=== PATIENT | male | born 1965 | race Caucasian/White ===

== ENCOUNTER 2017-06-28 18:55 | Observation (INO) ==
[2017-06-28] MEDS ORDERED: Aspirin 81 MG TAB.CHEW PO ONE (19:21)
[2017-06-28] MEDS ORDERED: 0.9 % Sodium Chloride 500 ML IVC ONE (19:21)
[2017-06-28] MEDS ORDERED: Nitroglycerin 0.4 MG TAB.SUBL SL PRN (19:44)
[2017-06-28] MEDS ORDERED: Nitroglycerin 0.4 MG TAB.SUBL SL ONE (19:45)
[2017-06-28 19:46] LABS: Basophils # 0.1 K/mcL (0.0-0.2); Basophils % 0.9 %; Eosinophils # 0.2 K/mcL (0.0-0.6); Eosinophils % 2.7 %; Hematocrit 46.6 % (37.5-50.1); Hemoglobin 15.5 g/dL (12.9-16.9); Immature Granulocytes % 0.2 % (0-4); Lymphocytes # 2.7 K/mcL (0.6-4.6); Lymphocytes % 48.3 %; Mean Corpuscular HGB Conc 33.3 g/dL (31.6-35.5); Mean Corpuscular Hemoglobin 30.1 pg (28.0-33.3); Mean Corpuscular Volume 90.5 fL (83.0-100.0); Mean Platelet Volume 10.6 fL (9.4-12.4); Monocytes # 0.4 K/mcL (0.0-1.3); Monocytes % 6.4 %; Neutrophils # 2.3 K/mcL (1.6-8.9); Platelet Count 203 K/mcL (140-400); Red Blood Count 5.15 M/mcL (4.19-5.50); Red Cell Distribution Width 13.9 % (11.5-14.5); Segmented Neutrophils % 41.5 %
[2017-06-28 19:52] LABS: INR 2.7; Prothrombin Time 29.5 Seconds (9.4-12.1)
[2017-06-28 19:55] LABS: Activated Partial Thrombo Time 59.6 Seconds (26.0-36.0)
[2017-06-28 20:00] LABS: BUN/Creatinine Ratio 15 (6-26); Blood Urea Nitrogen 14 mg/dL (8-26); Calcium 9.6 mg/dL (8.6-10.8); Carbon Dioxide 27 mEq/L (19-29); Chloride 103 mEq/L (98-109); Glucose 121 mg/dL (70-99); Osmolality,Calculated 290 (280-300); Potassium 4.2 mEq/L (3.5-4.5); eGFR For African Americans > 60 (> 60); eGFR For Non-African Americans > 60 (> 60)
[2017-06-28 20:01] LABS: Sodium 139 mEq/L (136-145)
--- NOTE | 2017-06-28 20:42 | Emergency Department Note ---
Disposition Clinical Impression: Chest pain Qualifiers: Chest pain type: unspecified Qualified Code(s): R07.9 - Chest pain, unspecified Disposition: Admitted As Inpatient Condition: Good Chest Pain HPI - General Chief Complaint: ED Chest Pain Stated Complaint: CP Time Seen by Provider: 06/28/17 19:04 Source: patient, family Limitations: no limitations Vital Signs Reviewed: Yes Nursing Notes Reviewed: Yes - History of Present Illness HPI Narrative: Patient is here for evaluation of chest pain. Patient's chest pain started on Tuesday and has been progressively worse in nature. Worse with exertion and associated with radiation as well as diaphoresis. Patient has a significant heart history including previous cardiac catheter that had 60% LAD lesion. Patient was recently started on Ranexa which did improve his symptoms but he has had to cut down his dose secondary to side effects. Severity scale (1-10): 6 - Related Data Home Medications Medication Instructions Recorded Confirmed Gemfibrozil [Lopid] 600 mg PO BIDWM 07/31/15 06/28/17 OXcarbazepine [Trileptal] 150 mg PO QPM 07/31/15 06/28/17 Sertraline [Zoloft] 50 mg PO HS 07/31/15 06/28/17 HYDROcodone/Acet 10/325 mg [[place] 1 tab PO BID PRN 01/24/17 06/28/17 10-325 mg] Acetaminophen/Butalbital/Caffe 1 each PO Q4-6H PRN 06/28/17 06/28/17 [Fioricet] Aspirin Enteric Coated [Aspirin EC] 81 mg PO DAILY 06/28/17 06/28/17 Atorvastatin [Lipitor] 40 mg PO HS 06/28/17 06/28/17 Divalproex (24 HR) [Depakote ER 250 mg PO TID 06/28/17 06/28/17 (24 HR)] Magnesium Oxide [Mag-Ox] 400 mg PO BID 06/28/17 06/28/17 Metoprolol [Lopressor] 50 mg PO BID 06/28/17 06/28/17 Midodrine [ProAmatine] 5 mg PO BID 06/28/17 06/28/17 Nitroglycerin [Nitrostat] 0.4 mg SL Q5M PRN 06/28/17 06/28/17 OXcarbazepine [Oxcarbazepine] 300 mg PO QAM 06/28/17 06/28/17 Promethazine [Phenergan] 25 mg PO BID PRN 06/28/17 06/28/17 Ranolazine [Ranexa] 500 mg PO BID 06/28/17 06/28/17 Warfarin [Coumadin] 8 mg PO DAILY 06/28/17 06/28/17 Allergies Allergy/AdvReac Type Severity Reaction Status Date / Time gabapentin Allergy Rash Verified 01/24/17 08:29 adhesive tape AdvReac Rash Verified 01/24/17 08:29 ibuprofen [From Motrin] AdvReac Swelling Verified 01/24/17 08:29 of Lip/Tongue/Throat morphine AdvReac See Verified 01/24/17 08:29 Comments Review of Systems: CONSTITUTIONAL: Fatigue and weakness No weight loss, fever, chills HEENT: Eyes: No visual changes. Ears, Nose, Throat: No hearing loss, difficulty talking or unable to swallow. SKIN: No rash or itching. CARDIOVASCULAR: Chest pain described as pressure; diaphoresis RESPIRATORY: Shortness of breath with exertion GASTROINTESTINAL: No anorexia, nausea, vomiting or diarrhea. No abdominal pain or blood. GENITOURINARY: No burning on urination or hematuria. NEUROLOGICAL: No headache, dizziness, syncope, paralysis, ataxia, numbness or tingling in the extremities. No change in bowel or bladder control. MUSCULOSKELETAL: No muscle pain, back pain, joint pain or stiffness. Chest Pain PMH - Past Medical History Medical history: Reports: arthritis, atrial fibrillation, COPD, coronary artery disease, hyperlipidemia, hypertension, pulmonary embolus, other Surgical history: Reports: pacemaker/AICD Psychiatric history: Reports: depression Prior Cardiac Testing/Procedures: Cardiac Angiogram (february) - Social History Smoking Status: Former smoker Alcohol use: Reports: none Drug use: Reports: none Physical Exam General appearance: Mild diaphoresis, conversant Eyes: anicteric sclerae, moist conjunctivae; PERRL HENT: Atraumatic; oropharynx clear with moist mucous membranes and no mucosal ulcerations Neck: Normal inspection; Trachea midline; FROM, supple Lungs: CTA, with normal respiratory effort and no intercostal retractions CV: RRR, no MRGs Abdomen: Soft, non-tender; no rebound or gaurding Extremities: No peripheral edema or extremity lymphadenopathy Skin: Normal temperature; no rash, ulcers or lesions Psych: Appropriate mood and affect Neuro: alert and oriented to person, place and time - General Limitations: no limitations General appearance: alert, in no apparent distress Course - Reevaluation(s) Reevaluation #1: Patient's chest pain significantly improved with just one nitroglycerin. Nitroglycerin has given him a migraine headache which stopped him from taking the second nitroglycerin. Patient reassured that we will give him pain medication like to get him chest pain-free if possible. Vital Signs Temperature 98.0 F 06/28/17 18:58 Pulse Rate 74 06/28/17 18:58 Respiratory Rate 18 06/28/17 18:58 Blood Pressure 148/101 06/28/17 18:58 O2 Sat by Pulse Oximetry 98 06/28/17 18:58 Temperature 98.0 F 06/28/17 18:58 Pulse Rate 70 06/28/17 21:00 Respiratory Rate 16 06/28/17 22:04 Blood Pressure 117/79 06/28/17 22:04 O2 Sat by Pulse Oximetry 94 06/28/17 21:00 Oxygen Delivery Oxygen Delivery Room Air Chest Pain - Medical Records Medical records reviewed: Yes I reviewed the patient's medical records. - Lab Data Lab results reviewed: Yes I reviewed the patient's lab results. Result diagrams: 06/28/17 19:37 06/28/17 19:37 Lab Results 06/28/17 06/28/17 06/28/17 Range/Units 19:37 19:37 19:37 WBC 5.6 (4.3-11.1) K/mcL RBC 5.15 (4.19-5.50) M/mcL Hgb 15.5 (12.9-16.9) g/dL Hct 46.6 (37.5-50.1) % MCV 90.5 (83.0-100.0) fL MCH 30.1 (28.0-33.3) pg MCHC 33.3 (31.6-35.5) g/dL RDW 13.9 (11.5-14.5) % Plt Count 203 (140-400) K/mcL MPV 10.6 (9.4-12.4) fL Immature Gran % 0.2 (0-4) % Seg Neutrophils % 41.5 % Lymphocytes % 48.3 % Monocytes % 6.4 % Eosinophils % 2.7 % Basophils % 0.9 % Neutrophils # 2.3 (1.6-8.9) K/mcL Lymphocytes # 2.7 (0.6-4.6) K/mcL Monocytes # 0.4 (0.0-1.3) K/mcL Eosinophils # 0.2 (0.0-0.6) K/mcL Basophils # 0.1 (0.0-0.2) K/mcL PT 29.5 H (9.4-12.1) Seconds INR 2.7 APTT 59.6 H (26.0-36.0) Seconds Sodium (136-145) mEq/L Potassium (3.5-4.5) mEq/L Chloride (98-109) mEq/L Carbon Dioxide (19-29) mEq/L BUN (8-26) mg/dL Creatinine (0.72-1.25) mg/dL Est GFR ( Amer) (> 60) Est GFR (Non-Af Amer) (> 60) BUN/Creatinine Ratio (6-26) Glucose (70-99) mg/dL Calculated Osmolality (280-300) Calcium (8.6-10.8) mg/dL Troponin I (0-0.03) ng/mL B-Natriuretic Peptide 19 (0-100) pg/mL 06/28/17 06/28/17 Range/Units 19:37 19:37 WBC (4.3-11.1) K/mcL RBC (4.19-5.50) M/mcL Hgb (12.9-16.9) g/dL Hct (37.5-50.1) % MCV (83.0-100.0) fL MCH (28.0-33.3) pg MCHC (31.6-35.5) g/dL RDW (11.5-14.5) % Plt Count (140-400) K/mcL MPV (9.4-12.4) fL Immature Gran % (0-4) % Seg Neutrophils % % Lymphocytes % % Monocytes % % Eosinophils % % Basophils % % Neutrophils # (1.6-8.9) K/mcL Lymphocytes # (0.6-4.6) K/mcL Monocytes # (0.0-1.3) K/mcL Eosinophils # (0.0-0.6) K/mcL Basophils # (0.0-0.2) K/mcL PT (9.4-12.1) Seconds INR APTT (26.0-36.0) Seconds Sodium 139 (136-145) mEq/L Potassium 4.2 (3.5-4.5) mEq/L Chloride 103 (98-109) mEq/L Carbon Dioxide 27 (19-29) mEq/L BUN 14 (8-26) mg/dL Creatinine 0.96 (0.72-1.25) mg/dL Est GFR ( Amer) > 60 (> 60) Est GFR (Non-Af Amer) > 60 (> 60) BUN/Creatinine Ratio 15 (6-26) Glucose 121 H (70-99) mg/dL Calculated Osmolality 290 (280-300) Calcium 9.6 (8.6-10.8) mg/dL Troponin I 0.00 (0-0.03) ng/mL B-Natriuretic Peptide (0-100) pg/mL - Radiology Data Radiology results reviewed: Yes I reviewed the patient's radiology results. - EKG Data EKG attestation: Yes I reviewed and interpreted this EKG. EKG results narrative: EKG shows electronically paced rhythm at 73 bpm. OR interval 223. QRS 102. QTC 389. No significant ST elevations or depressions. When compared to previous EKG of 07/31/15 there are no significant changes. Attestation Statement - Attestation Attestation: I, Neftali Eastman MD, personally evaluated this patient and discussed their management with the resident physician. I reviewed the resident's note and agree with the documented findings, medical decision making, and plan of care. 51-year-old male presents to the emergency department with a complaint of increasing chest pains over the past 3 days. He describes the pain as a pressure in the substernal area. Some intermittent radiation to the left arm. Some diaphoresis and shortness of breath associated with the pain. The pain is worse with exertion and improved with rest. Patient has some known coronary artery disease from a fairly recent cardiac catheter. He states that he was advised if the pain continued to come back to the hospital and they would figure out something to do for his pain. On examination patient is a well-developed well-nourished male in no acute distress. He is alert and oriented 3. There is no cyanosis or diaphoresis. There is mild tenderness to palpation over the anterior chest wall which does not reproduce the patient's chest pains. Breath sounds are clear and equal bilaterally. Heart regular rate and rhythm. Abdomen soft and nontender with normal bowel sounds. Labs reviewed. Troponin 0.00. Chest x-ray negative. EKG shows an atrial pacemaker with no acute ischemic changes. The hospital, Dr. Maher, was consulted and accepted admission of the patient.
[2017-06-28] MEDS ORDERED: Naloxone 0.4 MG/ML INJ IVP PRN (22:43)
[2017-06-28] MEDS ORDERED: Acetaminophen 325 MG TABLET PO PRN (22:44)
[2017-06-28] MEDS ORDERED: *HR* HYDROcodone/Acet 10/325 mg TABLET PO PRN (22:47)
--- NOTE | 2017-06-29 01:07 | Internal Med History&Physical ---
Date of Encounter: 06/29/17 Time of Encounter: 22:00 Assessment and Plan (1) Paroxysmal a-fib Current visit: Yes Status: Acute Right now pacing rhythm. Heart rate is well controlled. Patient is on Coumadin. INR is therapeutic. (2) Tachy-freddy syndrome Current visit: Yes Status: Acute s/p pacemaker placement. Heart rate is stable. (3) CAD (coronary artery disease) Current visit: Yes Status: Acute has more frequent chest pain. Chest pain is exertional. We will continue ASA, BB, Statin, Renexa. Cardiology consult for further management. Qualifiers: Coronary Disease-Associated Artery/Lesion type: [place] artery [place] vs. transplanted heart: [place] heart Associated angina: with stable angina Qualified Code(s): I25.118 - Atherosclerotic heart disease of [place] coronary artery with other forms of angina pectoris (4) DVT prophylaxis Current visit: Yes Status: Acute Patient is on Coumadin (5) Chest pain Current visit: Yes Status: Acute more like stable angina. Will place patient on continuous cardiac monitoring. track 3 sets of troponin to rule out ACS. Continue medical treatment. Place on echocardiogram. Patient had a recent LHC already and CAD is diagnosed. We will consult cardiology for further management. Qualifiers: Chest pain type: chest pain due to myocardial ischemia Qualified Code(s): I20.8 - Other forms of angina pectoris Internal Medicine - H&P: HPI Chief complaint: Chest pain Admitted From: Home Plans for Post Hospital Care: Home History of present illness: Mr. Padilla is a 51 year old male with a history of paroxysmal A. fib on Coumadin, tachybradycardia syndrome s/p pacemaker, CAD present to emergency room for chest tightness and the pain. Patient has chronic chest pain, especially exertional angina. He did LHC in January and was found 60% proximal LAD stenosis. He follow up with bacon de rinder Dr Andrews as outpatient. Patient said since Tuesday he had 2 episodes of chest pain, pain is a pressure-like, 10 out of 10, located on left chest and radiated to left arm, lasted 30 min-1 hour, with shortness of breath and nausea and diaphoresis. Pain is induced by exertion. Respond to nitroglycerin. Patient consulted his bacon de rinder and recommended to come to ER. Patient was admitted for further management. When I saw patient in the emergency room, he is pain-free but still complaining of chest tightness. Have discussed CODE STATUS with patient. He is full code. Past Med Surg Social Fam HX - Past Medical History Medical history: arthritis, atrial fibrillation, COPD, coronary artery disease, hyperlipidemia, hypertension, pulmonary embolus, other Psychiatric history: depression - Past Surgical History Surgical History: orthopedic, other, pacemaker/AICD - Social History Smoking Status: Former smoker Smokeless Tobacco Status: No Alcohol use: none Drug use: none - Family History Mother Living Status: Hx Family Cardiac Disorders: Yes (HTN) Hx Family Cancer: Yes (bowel) Hx Family Endocrine Disorder: Yes (DM) Father Hx Family Cardiac Disorders: Yes Hx Family Cancer: Yes Internal Medicine - H&P: Meds Gemfibrozil [Lopid] 600 mg PO BIDWM 07/31/15 [History] OXcarbazepine [Trileptal] 150 mg PO QPM 07/31/15 [History] Sertraline [Zoloft] 50 mg PO HS 07/31/15 [History] HYDROcodone/Acet 10/325 mg [[place] 10-325 mg] 1 tab PO BID PRN 01/24/17 [History] Acetaminophen/Butalbital/Caffe [Fioricet] 1 each PO Q4-6H PRN 06/28/17 [History] Aspirin Enteric Coated [Aspirin EC] 81 mg PO DAILY 06/28/17 [History] Atorvastatin [Lipitor] 40 mg PO HS 06/28/17 [History] Divalproex (24 HR) [Depakote ER (24 HR)] 250 mg PO TID 06/28/17 [History] Magnesium Oxide [Mag-Ox] 400 mg PO BID 06/28/17 [History] Metoprolol [Lopressor] 50 mg PO BID 06/28/17 [History] Midodrine [ProAmatine] 5 mg PO BID 06/28/17 [History] Nitroglycerin [Nitrostat] 0.4 mg SL Q5M PRN 06/28/17 [History] OXcarbazepine [Oxcarbazepine] 300 mg PO QAM 06/28/17 [History] Promethazine [Phenergan] 25 mg PO BID PRN 06/28/17 [History] Ranolazine [Ranexa] 500 mg PO BID 06/28/17 [History] Warfarin [Coumadin] 8 mg PO DAILY 06/28/17 [History] Allergies gabapentin Allergy (Verified 01/24/17 08:29) Rash adhesive tape Adverse Reaction (Verified 01/24/17 08:29) Rash ibuprofen [From Motrin] Adverse Reaction (Verified 01/24/17 08:29) Swelling of Lip/Tongue/Throat morphine Adverse Reaction (Verified 01/24/17 08:29) See Comments Pt states that he goes into organ shutdown. All Systems PM: A 10-system review of systems was performed and is negative for pertinent findings except as documented above in the HPI. - Constitutional Vitals: Temp Pulse Resp BP Pulse Ox 97.8 F 68 18 134/92 95 06/28/17 22:38 06/28/17 22:38 06/28/17 22:38 06/28/17 22:38 06/28/17 22:38 General appearance: Present: A&O X 3, no acute distress, answers questions appropriately - Head Head exam: Present: atraumatic, normocephalic - Eye Eye exam: Present: PERRL, conjuntiva pink, sclera anicteric Pupils: Present: PERRL - Neck Neck exam general surgery: Present: supple, trachea midline. Absent: lymphadenopathy - Respiratory Respiratory exam: Present: CTAB. Absent: accessory muscle use, rales, rhonchi, wheezes - Cardiovascular Cardiovascular exam: Present: RRR, +S1, +S2. Absent: diastolic murmur, gallop, rubs, systolic murmur - GI/Abdominal GI/Abdominal exam: Present: normal bowel sounds, soft, no peritoneal signs. Absent: distended, tenderness - Extremities Exam Extremities exam: Present: warm, radial pulses palpable and symmetrical. Absent : calf tenderness, cyanotic, pedal edema - Neurological Exam Neurological exam: Present: CN II-XII intact, oriented X3, no focal deficits. Absent: pronater drift, facial droop, speech deficit - Skin Skin exam: Present: dry, intact Internal Med - H&P Results - Labs CBC & Chem 7: 06/28/17 19:37 06/28/17 19:37 - EKG Data -: EKG Interpreted by Myself (Pacing rhythm w/o significant ST-T changes.)
[2017-06-29 01:34] LABS: Basophils # 0.1 K/mcL (0.0-0.2); Basophils % 0.8 %; Eosinophils # 0.2 K/mcL (0.0-0.6); Eosinophils % 3.3 %; Hematocrit 43.2 % (37.5-50.1); Hemoglobin 14.7 g/dL (12.9-16.9); Immature Granulocytes % 0.2 % (0-4); Lymphocytes # 3.2 K/mcL (0.6-4.6); Lymphocytes % 52.6 %; Mean Corpuscular Hemoglobin 30.2 pg (28.0-33.3); Mean Corpuscular Volume 88.9 fL (83.0-100.0); Mean Platelet Volume 10.7 fL (9.4-12.4); Monocytes # 0.6 K/mcL (0.0-1.3); Monocytes % 9.8 %; Neutrophils # 2.1 K/mcL (1.6-8.9); Platelet Count 191 K/mcL (140-400); Red Blood Count 4.86 M/mcL (4.19-5.50); Segmented Neutrophils % 33.3 %
[2017-06-29 01:38] LABS: INR 2.8; Prothrombin Time 31.4 Seconds (9.4-12.1)
[2017-06-29 01:49] LABS: BUN/Creatinine Ratio 18 (6-26); Blood Urea Nitrogen 14 mg/dL (8-26); Calcium 9.3 mg/dL (8.6-10.8); Carbon Dioxide 26 mEq/L (19-29); Chloride 106 mEq/L (98-109); Chol/HDL Ratio 5.7 (0-4.9); Cholesterol 194 mg/dL (< 200); Glucose 98 mg/dL (70-99); HDL Cholesterol 34 mg/dL (40-59); LDL Cholesterol,Calculated 121 mg/dL (0-99); Magnesium 1.9 mg/dL (1.6-2.6); Osmolality,Calculated 288 (280-300); Potassium 3.9 mEq/L (3.5-4.5); Sodium 139 mEq/L (136-145); Triglycerides 196 mg/dL (< 150); eGFR For African Americans > 60 (> 60); eGFR For Non-African Americans > 60 (> 60)
--- NOTE | 2017-06-29 11:28 | Cardiology Consult Note ---
<VandanaNam - Last Filed: 06/29/17 11:17> Date of Encounter: 06/29/17 Time of Encounter: 10:00 Assessment and Plan Discussion w patient/family: The assessment and plan as outlined above was discussed with the patient and/or family members who expressed understanding and agreement. All questions were answered. Thank you for involving us in the care of your patient. Please call with any questions. History of Present Illness Consult date: 06/29/17 Requesting physician: Dickson Maher Consult reason: Exertional chest pain, C in January showing 60% stenosis. Chief complaint: Chest pain and shortness of breath. History of present illness: Mr. Padilla is a 51 year old male with a PMH of A-Fib, tach-bradycardia syndrome s/ p pacemaker, and CAD that presented to the ED yesterday for chest pain and shortness of breath. Patient said shis symptoms initially began last Tuesday. Upon waking up, he describes a pressure on his chest with radiation to his L arm. He rated the paina 4-5/10. He also began to experience shortness of breath. It lasted for 4 hours until he took some nitroglycerin tabs and eased the pain to a 1-2/10. A few hours later the pain came back again while he was walking in his house. Taking some nitro tabs helped him again. 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 He took some nitro tabs which helped with the pain. Later in the day, he proceeded to walk up his inclined driveway when he felt a chest pain of 10/10 along with shortness of breath. When he took some nitro tabs, the pain eased a bit. By the time he got to the ER, his pain came back again to a 10/10. He responded to nitro in the ER. Troponins were negative on arrival. Chest X-ray revealed no acute cardiopulmonary disease. Speaking to him today, he still complains of chest tightness/pressure, rating it a 3/10 in pain scale. He denies shortness of breath when resting but admits to it when he sits up or moves around. Past Med Surg Social Fam HX - Past Medical History Medical history: arthritis, atrial fibrillation, COPD, coronary artery disease, hyperlipidemia, hypertension, pulmonary embolus, other Psychiatric history: depression - Past Surgical History Surgical History: orthopedic, other, pacemaker/AICD - Social History Smoking Status: Former smoker Smokeless Tobacco Status: No Alcohol use: none Drug use: none - Family History Mother Living Status: Hx Family Cardiac Disorders: Yes (HTN) Hx Family Cancer: Yes (bowel) Hx Family Endocrine Disorder: Yes (DM) Father Hx Family Cardiac Disorders: Yes Hx Family Cancer: Yes Medications and Allergies Gemfibrozil [Lopid] 600 mg PO BIDWM 07/31/15 [History] OXcarbazepine [Trileptal] 150 mg PO QPM 07/31/15 [History] Sertraline [Zoloft] 50 mg PO HS 07/31/15 [History] HYDROcodone/Acet 10/325 mg [[place] 10-325 mg] 1 tab PO BID PRN 01/24/17 [History] Acetaminophen/Butalbital/Caffe [Fioricet] 1 each PO Q4-6H PRN 06/28/17 [History] Aspirin Enteric Coated [Aspirin EC] 81 mg PO DAILY 06/28/17 [History] Atorvastatin [Lipitor] 40 mg PO HS 06/28/17 [History] Divalproex (24 HR) [Depakote ER (24 HR)] 250 mg PO TID 06/28/17 [History] Magnesium Oxide [Mag-Ox] 400 mg PO BID 06/28/17 [History] Metoprolol [Lopressor] 50 mg PO BID 06/28/17 [History] Midodrine [ProAmatine] 5 mg PO BID 06/28/17 [History] Nitroglycerin [Nitrostat] 0.4 mg SL Q5M PRN 06/28/17 [History] OXcarbazepine [Oxcarbazepine] 300 mg PO QAM 06/28/17 [History] Promethazine [Phenergan] 25 mg PO BID PRN 06/28/17 [History] Ranolazine [Ranexa] 500 mg PO BID 06/28/17 [History] Warfarin [Coumadin] 8 mg PO DAILY 06/28/17 [History] Allergies gabapentin Allergy (Verified 01/24/17 08:29) Rash adhesive tape Adverse Reaction (Verified 01/24/17 08:29) Rash ibuprofen [From Motrin] Adverse Reaction (Verified 01/24/17 08:29) Swelling of Lip/Tongue/Throat morphine Adverse Reaction (Verified 01/24/17 08:29) See Comments Pt states that he goes into organ shutdown. All Systems Review: A 10-system review of systems was performed and is negative for pertinent findings except as documented above in the HPI. Physical Examination Vital Signs, Last 4 Hours Temp Pulse Resp BP Pulse Ox 06/29/17 07:26 97.5 F L 65 16 125/87 95 Results 06/29/17 01:08 06/29/17 01:08 Lab Results 06/29/17 06/29/17 06/29/17 01:08 01:08 01:08 WBC 6.1 Hgb 14.7 Hct 43.2 Plt Count 191 INR 2.8 Sodium Potassium Chloride Carbon Dioxide BUN Creatinine Glucose Calcium Magnesium Troponin I 0.00 06/29/17 06/29/17 01:08 05:39 WBC Hgb Hct Plt Count INR Sodium 139 Potassium 3.9 Chloride 106 Carbon Dioxide 26 BUN 14 Creatinine 0.77 Glucose 98 Calcium 9.3 Magnesium 1.9 Troponin I 0.00 Consult Discharge Plan - Plan Referrals: Juan Saucedo MD [Primary Care Provider] - <Vipul Hernandez J - Last Filed: 06/29/17 14:01> Date of Encounter: 06/29/17 Assessment and Plan (1) Chest pain Current Visit: Yes Status: Acute 1. Atypical chest pain, improved but not completely resolved, troponins negative , will order chest CT to rule out PE. 2. Sick sinus syndrome with PPMK, last interogated 8 onths ago, will repeat sutdy today, syimptoms may be due to pacemaker syndrome 3. PE - by history, pt reports todays complaints similar to previouss presentation with DVT/PE, will obtain spiral ct to rule out PE, expect low probability with therapuetic INR. 4. Chronic migraines, improved control with recent increase from 25 to 50 mg metoprolol tartrate to 50 mg bid. 5. CAD - trivial stenosis in Mid LAD< 60% with excellent flow reserve of .98 before and after pharmacologic challenge with Adenosine. j Qualifiers: Chest pain type: other chest pain Qualified Code(s): R07.89 - Other chest pain; R07.8 - Other chest pain Discussion w patient/family: The assessment and plan as outlined above was discussed with the patient and/or family members who expressed understanding and agreement. All questions were answered. Thank you for involving us in the care of your patient. Please call with any questions. History of Present Illness History of present illness: Mr. Padilla is a 51 year old male who presented to the ER with three day history of chest pain, sudden onset, 8/10 at most severe, stabbing sensation, beginning in left chest, radiating into left shoulder and left arm, lasting seconds up to five minutes, associated with heart pounding, improved with rest, and with sublingual ntg over five minutes.. Pain can occur at rest, and can be provoked by exercise. He reports chest pain improves with sl ntg, but has not completely resolved, still having 2/10 pain at rest. He notes recurrent symptoms, reports has been in ER x 6 to 9 times over the last three months with similar complaints. He reports sequential EKGs and cardiac enzemes are consistently normal, is observed in ER for several hours, then discharged to home care. He has undergone multiple perfusion imaging studies, all reportedly normal. He notes his heart racing and pounding associated with the events of chest pain. He is followed in a research study for pacer lead endurance at [facility] with Dr. Zeke Martínez, who manages his pacemaker. PT All Systems Review: A 10-system review of systems was performed and is negative for pertinent findings except as documented above in the HPI. - Constitutional Constitutional: fatigue, headache(s), malaise - Cardiovascular Cardiovascular: chest pain at rest, chest pain with exertion, diaphoresis, dyspnea on exertion, irregular heart rhythm, lightheadedness, palpitations, rapid heart rate - Respiratory Respiratory: dyspnea - Musculoskeletal Musculoskeletal: arthralgias, back pain, muscle weakness - Neurological Neurological: abnormal speech, memory loss, syncope, other (Pt is on midodrine for near syncope with some symptomatic improvement. ) - Psychiatric Psychiatric: anxiety, depression Physical Examination Vital Signs, Last 4 Hours Temp Pulse Resp BP Pulse Ox 06/29/17 11:38 97.9 F 69 16 142/103 96 General: Conversant, No Apparent Distress, Other (Complains of 4/10 migraine pain, however normally conversant, not demostrating photophopbia) HEENT: Atraumatic, Normocephaly, Mucus Membranes Moist Neck: No JVD, Normal carotid pulses Cardiac: Reg Rate and Rhythm, Normal S1 and S2, No Murmur Lungs: Normal Breath Sounds, No Wheeze, Rales, Rhonchi Neuro: Alert and responsive, No focal deficits noted Abdomen: Soft, Non-Tender Skin: No rashes noted on visualized skin Musculoskeletal: No Chest Wall Tenderness Extremities: No Clubbing, No Cyanosis, No Edema, Normal Pulses Results 06/29/17 01:08 06/29/17 01:08 Lab Results 06/29/17 06/29/17 06/29/17 01:08 01:08 01:08 WBC 6.1 Hgb 14.7 Hct 43.2 Plt Count 191 INR 2.8 Sodium Potassium Chloride Carbon Dioxide BUN Creatinine Glucose Calcium Magnesium Troponin I 0.00 06/29/17 06/29/17 01:08 05:39 WBC Hgb Hct Plt Count INR Sodium 139 Potassium 3.9 Chloride 106 Carbon Dioxide 26 BUN 14 Creatinine 0.77 Glucose 98 Calcium 9.3 Magnesium 1.9 Troponin I 0.00 - Attending Attestation Pt seen and examined independently, chart reviewed, essentially agree with above findings, see my addendum attached.
[2017-06-29] MEDS: Acetaminophen/Butalbital/CaffeineTABLET PO PRN (14:35)
[2017-06-29] MEDS: Divalproex (24 HR) 250 MG TABLET PO SCH ×3 (14:36→20:19)
--- NOTE | 2017-06-29 15:16 | Electrocardiograph Report ---
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
--- NOTE | 2017-06-29 17:10 | Internal Med Progress Note ---
Date of Encounter: 06/29/17 Time of Encounter: 14:45 - Assessment and plan (1) Chest pain Current Visit: Yes Status: Acute Assessment and plan: Patient reports 3/10 midsternal and left chest pressure with shortness of breath. He denies any nausea vomiting or diaphoresis. It has improved but has not completely resolved. Troponins are negative. CT chest was negative for PE or acute process. Chest x-ray was also negative for any acute cardiopulmonary disease. EKG showed atrial paced rhythm with a rate of 73, ME interval 223 RS 102 QTC 389. Patient was seen by cardiology who ordered the CTA chest. Patient has a pacemaker that was last interrogated 8 months ago. He is to see his hotel custodian for interrogation next week. Cardiology here reports that they will interrogate the pacemaker instead. Continue school lunch monitor vital signs, labs, patient condition. Cardiology on board. Qualifiers: Chest pain type: other chest pain Qualified Code(s): R07.89 - Other chest pain; R07.8 - Other chest pain (2) Paroxysmal a-fib Current Visit: Yes Status: Acute Assessment and plan: Patient has pacemaker, rhythm is paced. Rate is well controlled. He is on Coumadin 8 mg daily. INR is therapeutic at 2.8.. 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 Patient has a pacemaker. Heart rate is stable and within normal limits. (4) CAD (coronary artery disease) Current Visit: Yes Status: Acute Assessment and plan: Patient reports 3/10 midsternal and left chest pressure with shortness of breath. It has improved, however has not resolved. Continue aspirin, statin, beta eleni, Ranexa. Cardiology is on board. Continue telemetry Qualifiers: Coronary Disease-Associated Artery/Lesion type: [place] artery [place] vs. transplanted heart: [place] heart Associated angina: with stable angina Qualified Code(s): I25.118 - Atherosclerotic heart disease of [place] coronary artery with other forms of angina pectoris (5) DVT prophylaxis Current Visit: Yes Status: Acute Assessment and plan: Patient is on Coumadin. - Time Spent With Patient less than 15 minutes - Subjective Interval history: Pt was seen and assessed at 1445. He is alert and oriented, awake. He reports 3/ 10 mid sternal and left chest pressure for 4 days. He reports SOB which is new for him, denies n/v of diaphoresis. Pt states that the pressure is worse with minimal exertion, pain is better with nitro and rest. Pt is aware that CT and echo results will not be done tonight and he will have to stay. - Constitutional Vitals: Temp Pulse Resp BP Pulse Ox 97.9 F 69 16 142/103 96 06/29/17 11:38 06/29/17 11:38 06/29/17 11:38 06/29/17 11:38 06/29/17 11:38 General appearance: Present: cooperative, A&O X 3, pleasant, no acute distress, answers questions appropriately - Head Head exam: Present: normal inspection - Eye Eye exam: Present: normal appearance, conjuntiva pink - ENT ENT exam: Present: mucous membranes moist, normal exam, normal external ear exam - Neck Neck exam general surgery: Present: normal inspection. Absent: lymphadenopathy , tenderness - Respiratory Respiratory exam: Present: CTAB. Absent: decreased breath sounds, rales, respiratory distress, rhonchi, stridor, wheezes - Cardiovascular Cardiovascular exam: Present: RRR, +S1, +S2. Absent: clicks, diastolic murmur, gallop, systolic murmur - GI/Abdominal GI/Abdominal exam: Present: normal bowel sounds, soft. Absent: distended, hepatomegaly, pulsatile mass, tenderness - Extremities Exam Extremities exam: Present: normal capillary refill, warm, radial pulses palpable and symmetrical. Absent: pedal edema, tenderness - Neurological Exam Neurological exam: Present: alert, oriented X3, no focal deficits. Absent: facial droop, speech deficit - Skin Skin exam: Present: dry, intact, normal color, warm. Absent: rash, urticaria Internal Medicine: Result - Labs CBC & Chem 7: 06/29/17 01:08 06/29/17 01:08 Labs: Short CBC 06/29/17 Range/Units 01:08 WBC 6.1 (4.3-11.1) K/mcL Hgb 14.7 (12.9-16.9) g/dL Hct 43.2 (37.5-50.1) % Plt Count 191 (140-400) K/mcL Neutrophils # 2.1 (1.6-8.9) K/mcL BMP 06/29/17 01:08 Sodium 139 Potassium 3.9 Chloride 106 Carbon Dioxide 26 BUN 14 Creatinine 0.77 Glucose 98 Calcium 9.3 Cardiac Enzymes 06/29/17 06/29/17 Range/Units 01:08 05:39 Troponin I 0.00 0.00 (0-0.03) ng/mL - ABG Interpretation ABG results: PT/INR, D-dimer PT 31.4 Seconds (9.4-12.1) H 06/29/17 01:08 - Impressions Impressions Chest CTA 06/29/17 14:05 IMPRESSION: No evidence of pulmonary embolism or acute pulmonary abnormality. D/ /29/2017 15:33:32 Kadie Hernandez MD / bcarter Interpreting Provider: Kadie Hernandez MD Consult Discharge Plan - Plan Referrals: Juan Saucedo MD [Primary Care Provider] -
[2017-06-29] MEDS: Aspirin Enteric Coated 81 MG Tablet PO SCH (17:23)
[2017-06-29] MEDS: Magnesium Oxide 400 MG TABLET PO SCH ×2 (17:23→20:19)
[2017-06-29] MEDS: Ranolazine 500 MG TAB.ER.12H PO SCH ×2 (17:24→20:19)
[2017-06-29] MEDS: OXcarbazepine 150 MG TABLET PO SCH ×2 (17:27→17:34)
[2017-06-29] MEDS ORDERED: *HR* Warfarin 4 MG TABLET PO SCH (18:00)
[2017-06-29] MEDS ORDERED: *HR* Warfarin 7.5 MG TABLET PO ONE (18:00)
[2017-06-29] MEDS ORDERED: Warfarin perPT PO PRN (18:00)
[2017-06-30 05:28] LABS: Basophils # 0.1 K/mcL (0.0-0.2); Basophils % 0.7 %; Eosinophils # 0.2 K/mcL (0.0-0.6); Eosinophils % 2.8 %; Hematocrit 45.4 % (37.5-50.1); Hemoglobin 15.5 g/dL (12.9-16.9); INR 1.9; Immature Granulocytes % 0.6 % (0-4); Immature Platelets 4.9 % (1.1-6.1); Lymphocytes # 2.5 K/mcL (0.6-4.6); Lymphocytes % 35.7 %; Mean Corpuscular HGB Conc 34.1 g/dL (31.6-35.5); Mean Corpuscular Volume 90.8 fL (83.0-100.0); Mean Platelet Volume 10.7 fL (9.4-12.4); Monocytes # 0.6 K/mcL (0.0-1.3); Monocytes % 9.1 %; Neutrophils # 3.6 K/mcL (1.6-8.9); Platelet Count 202 K/mcL (140-400); Prothrombin Time 20.5 Seconds (9.4-12.1); Red Cell Distribution Width 14.3 % (11.5-14.5); Segmented Neutrophils % 51.1 %
[2017-06-30 05:42] LABS: BUN/Creatinine Ratio 22 (6-26); Blood Urea Nitrogen 16 mg/dL (8-26); Calcium 9.2 mg/dL (8.6-10.8); Carbon Dioxide 24 mEq/L (19-29); Chloride 108 mEq/L (98-109); Glucose 107 mg/dL (70-99); Osmolality,Calculated 288 (280-300); Potassium 3.9 mEq/L (3.5-4.5); Sodium 138 mEq/L (136-145); eGFR For African Americans > 60 (> 60); eGFR For Non-African Americans > 60 (> 60)
[2017-06-30] MEDS: OXcarbazepine 150 MG TABLET PO SCH ×2 (09:00→17:25)
[2017-06-30] MEDS: Aspirin Enteric Coated 81 MG Tablet PO SCH (09:00)
[2017-06-30] MEDS: Magnesium Oxide 400 MG TABLET PO SCH ×2 (09:00→21:53)
[2017-06-30] MEDS: Ranolazine 500 MG TAB.ER.12H PO SCH ×2 (09:00→21:53)
[2017-06-30] MEDS: Divalproex (24 HR) 250 MG TABLET PO SCH ×3 (09:01→21:53)
--- NOTE | 2017-06-30 11:55 | Internal Med Progress Note ---
Date of Encounter: 06/30/17 Time of Encounter: 10:55 - Assessment and plan (1) Chest pain Current Visit: Yes Status: Acute Assessment and plan: Patient reports 3/10 midsternal and left chest pressure with shortness of breath after shower. He denies any nausea vomiting or diaphoresis. Troponins are negative. CT chest was negative for PE or acute process. Chest x-ray was also negative for any acute cardiopulmonary disease. EKG showed atrial paced rhythm with a rate of 73, [place] interval 223 RS 102 QTC 389. verbalizes concern over pt's ability to go home due to chest pain and SOB with exertion We are waiting on cardiology to see pt, I appreciate their consultation and recommendations. Continue panel monitor vital signs, labs, patient condition. Cardiology on board. Qualifiers: Chest pain type: other chest pain Qualified Code(s): R07.89 - Other chest pain; R07.8 - Other chest pain (2) Paroxysmal a-fib Current Visit: Yes Status: Acute Assessment and plan: Patient has pacemaker, rhythm is paced. Rate is well controlled. He is on Coumadin 8 mg daily. INR is subtherapeutic at 1.9. Pharmacy is dosing. 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 Patient has a pacemaker. Heart rate is stable and within normal limits. (4) CAD (coronary artery disease) Current Visit: Yes Status: Acute Assessment and plan: Patient reports 3/10 midsternal and left chest pressure with shortness of breath again today after shower. It has improved with rest over time, however has not resolved. Continue aspirin, statin, beta eleni, Ranexa. Cardiology is on board. Continue telemetry Qualifiers: Coronary Disease-Associated Artery/Lesion type: [place] artery [place] vs. transplanted heart: [place] heart Associated angina: with stable angina Qualified Code(s): I25.118 - Atherosclerotic heart disease of [place] coronary artery with other forms of angina pectoris (5) DVT prophylaxis Current Visit: Yes Status: Acute Assessment and plan: Patient is on Coumadin. - Time Spent With Patient less than 15 minutes - Subjective Interval history: Pt was seen and assessed at 1055. and multiple family at bedside. Pt states that he was feeling well until he got up to take a shower and became sob and began having chest pressure again. It was not relieved with rest, but has decreased to about a 2-3/10 over time. Pt does not appear to be in distress and speaks easily in full sentences. His is concerned about him going home in his current condition since they live so far away and he may become worse. - Constitutional Vitals: Temp Pulse Resp BP Pulse Ox 97.5 F L 62 14 119/81 95 06/30/17 11:24 06/30/17 11:24 06/30/17 11:24 06/30/17 11:24 06/30/17 11:24 General appearance: Present: cooperative, A&O X 3, pleasant, no acute distress, answers questions appropriately - Head Head exam: Present: normal inspection, normocephalic - Eye Eye exam: Present: normal appearance, conjuntiva pink. Absent: nystagmus - ENT ENT exam: Present: mucous membranes moist, normal exam, normal external ear exam - Neck Neck exam general surgery: Present: normal inspection. Absent: lymphadenopathy , tenderness - Respiratory Respiratory exam: Present: CTAB. Absent: chest wall tenderness, decreased breath sounds, rales, respiratory distress, rhonchi, stridor, wheezes - Cardiovascular Cardiovascular exam: Present: RRR, +S1, +S2. Absent: clicks, diastolic murmur, gallop, systolic murmur, tachycardia - GI/Abdominal GI/Abdominal exam: Present: normal bowel sounds, soft. Absent: distended, hepatomegaly, tenderness - Extremities Exam Extremities exam: Present: normal capillary refill, normal inspection, warm, radial pulses palpable and symmetrical. Absent: calf tenderness, joint swelling , mottling, pedal edema, tenderness - Neurological Exam Neurological exam: Present: alert, oriented X3, no focal deficits, strengths equal and symetr throughout. Absent: altered, facial droop, speech deficit - Skin Skin exam: Present: dry, intact, normal color, warm. Absent: rash, urticaria Internal Medicine: Result - Labs CBC & Chem 7: 06/30/17 05:05 06/30/17 05:05 Labs: Short CBC 06/30/17 Range/Units 05:05 WBC 7.1 (4.3-11.1) K/mcL Hgb 15.5 (12.9-16.9) g/dL Hct 45.4 (37.5-50.1) % Plt Count 202 (140-400) K/mcL Neutrophils # 3.6 (1.6-8.9) K/mcL BMP 06/30/17 05:05 Sodium 138 Potassium 3.9 Chloride 108 Carbon Dioxide 24 BUN 16 Creatinine 0.74 Glucose 107 H Calcium 9.2 - ABG Interpretation ABG results: PT/INR, D-dimer PT 20.5 Seconds (9.4-12.1) H 06/30/17 05:05 - Impressions Impressions Chest CTA 06/29/17 14:05 IMPRESSION: No evidence of pulmonary embolism or acute pulmonary abnormality. D/ : / 06/29/2017 15:33:32 Kadie Hernandez MD / bcarter Interpreting Provider: Kadie Hernandez MD Consult Discharge Plan - Plan Referrals: Juan Saucedo MD [Primary Care Provider] -
--- NOTE | 2017-06-30 12:49 | Cardiology Progress Note ---
<CandacebettinajamalNam castro - Last Filed: 06/30/17 13:39> Date of Encounter: 06/30/17 Time of Encounter: 10:30 Assessment and Plan (1) Atypical chest pain Current Visit: Yes Status: Acute Chest CTA reveals no evidence of PE or acute pulmonary abnormality. Pacemaker was assessed and reported to be normal with 7.9 years left, 4 atrial high rates since May, atrial flutter/A-Fib, atrial pace of 60% and ventricular pace of 1% . Continue Nitroglycerine as needed. Continue Ranexa. (2) Sick sinus syndrome Current Visit: Yes Status: Acute Pacemaker was assessed and appeared to be functioning normally. (3) Diastolic CHF Current Visit: Yes Status: Acute Echocardiogram report from 06/29/17 reveals a LVEF of 60% with mild diastolic dysfunction of the LV. Discontinued metoprolol and replaced with sotalol 80 mg BID. Continue statin and aspirin. Qualifiers: Qualified Code(s): I50.30 - Unspecified diastolic (congestive) heart failure (4) Paroxysmal a-fib Current Visit: Yes Status: Acute Discontinued metoprolol and placed patient on sotalol 80 mg PO BID. Pacemaker was assessed and appears to be functioning normally. Patient is on coumadin and current INR is 1.9. Recommend adjusting coumadin dose from 8 mg to 10 mg. Monitor INR for therapeutic range of 2-3. (5) CAD (coronary artery disease) Current Visit: Yes Status: Acute Trivial stenosis in mid LAD < 60% with excellent flow reserve of .98 before and after pharmacologic challenge with adenosine. No cardiac stress test is recommended. Metoprolol was discontinued and replaced with sotalol. Continue aspirin and statin. Qualifiers: Coronary Disease-Associated Artery/Lesion type: [place] artery [place] vs. transplanted heart: eagle heart Associated angina: with stable angina Qualified Code(s): I25.118 - Atherosclerotic heart disease of [place] coronary artery with other forms of angina pectoris (6) Hyperlipidemia Current Visit: Yes Status: Acute Continue Statin. Qualifiers: Qualified Code(s): E78.5 - Hyperlipidemia, unspecified Discussion w patient/family: The assessment and plan as outlined above was discussed with the patient and/or family members who expressed understanding and agreement. All questions were answered. Thank you for involving us in the care of your patient. Please call with any questions. Subjective Principal diagnosis: Atypical chest pain r/o PE, Paroxysmal A-Fib Interval history: Spoke to patient today and he rates his chest pain about a 1-2/10, says it is constant, and has slightly improved since yesterday. He does admit that when he got up to go to the shower this morning, his chest pain increased to a 3-4/10 and developed shortness of breath along with some palpitations, nausea, and light headedness. He denies any vomiting or syncope. He also mentions that he sees black spots every now and then, but that is his baseline. Objective Vital Signs, Last 4 Hours Temp Pulse Resp BP Pulse Ox 06/30/17 11:24 97.5 F L 62 14 119/81 95 06/30/17 08:55 95 General: Conversant, No Apparent Distress Neck: No JVD, Normal carotid pulses Cardiac: Reg Rate and Rhythm, Normal S1 and S2, No Murmur Lungs: Normal Breath Sounds, No Wheeze, Rales, Rhonchi Neuro: Alert and responsive Musculoskeletal: No Chest Wall Tenderness Extremities: No Clubbing, No Cyanosis, No Edema, Normal Pulses Results 06/30/17 05:05 06/30/17 05:05 Lab Results 06/30/17 06/30/17 06/30/17 05:05 05:05 05:05 WBC 7.1 Hgb 15.5 Hct 45.4 Plt Count 202 INR 1.9 Sodium 138 Potassium 3.9 Chloride 108 Carbon Dioxide 24 BUN 16 Creatinine 0.74 Glucose 107 H Calcium 9.2 - Imaging and Cardiology Echo: report reviewed (06/29/17: LVEF of 60%. Normal LV size and systolic function. Mild diastolic dysfunction of LV. RV is dilated with normal function. Mild mitral regurtitation. Mild tricuspid regurgitation. No pulmonary hypertension.) Other Results: Chest CTA: No evidence of PE or acute pulmonary abnormality. Consult Discharge Plan - Plan Referrals: Juan Saucedo MD [Primary Care Provider] - 07/07/17 1:30 pm () <Vipul Hernandez - Last Filed: 07/01/17 13:31> Date of Encounter: 07/01/17 Assessment and Plan (1) Chest pain Current Visit: Yes Status: Acute Qualifiers: Chest pain type: other chest pain Qualified Code(s): R07.89 - Other chest pain; R07.8 - Other chest pain Discussion w patient/family: The assessment and plan as outlined above was discussed with the patient and/or family members who expressed understanding and agreement. All questions were answered. Thank you for involving us in the care of your patient. Please call with any questions. Objective Vital Signs, Last 4 Hours Temp Pulse Resp BP Pulse Ox 07/01/17 11:31 97.6 F 69 16 126/87 97 07/01/17 09:50 97 Results 07/01/17 04:03 07/01/17 04:03 Lab Results 07/01/17 07/01/17 07/01/17 04:03 04:03 04:03 WBC 6.3 Hgb 15.5 Hct 45.5 Plt Count 193 INR 2.2 Sodium 138 Potassium 4.1 Chloride 107 Carbon Dioxide 23 BUN 13 Creatinine 0.73 Glucose 102 H Calcium 9.2 - Attending Attestation PT seen and examined, chart reviewed independently, essentially agree with findings above, my evaluation as follows: CC chest pain Asked to see patient reguarding chest pain, palplitations Pt reports chest pain has resolved. He is active, walking in room without provocation of chest pain or pressure. He notes occasional chest "twinge" when he feels an extra heartbeat, comes and goes spontaneously, last seconds, can resolve quicker if sits down. He also reports shortness of breath has improved. IMP/Plan 1. Chest pain, atypical, appears associated with atrial arrhythmia, most symptomatic with atrial ecotopy. PT notes symptoms were much better controlled on sotalol, which was discontinued after last a fib ablation, but have not been nearly as well controlled on metoprolol. Will switch back to sotalol, 80 mg bid , starting this evening, monitor heart rate and symptomatic response, repeat EKG in am, encourage increased ambulation. 2. SSS with PPMK, functioning normally with most recent interrogation, however recordings show rapid Atrial tach, which appear to correlate with his most severe symptoms. 3. Well compensated chronic diastolic heart failure - well compensated on current meds. 4. CAD - mild, 60% mid LAD with FFR .98, medical tx, risk factor modification.
[2017-06-30] MEDS: Acetaminophen/Butalbital/CaffeineTABLET PO PRN (15:34)
[2017-06-30] MEDS: *HR* Warfarin 4 MG TABLET PO SCH (17:25)
[2017-07-01 04:25] LABS: Basophils # 0.1 K/mcL (0.0-0.2); Basophils % 0.8 %; Eosinophils # 0.2 K/mcL (0.0-0.6); Eosinophils % 2.9 %; Hematocrit 45.5 % (37.5-50.1); Hemoglobin 15.5 g/dL (12.9-16.9); Immature Granulocytes % 0.3 % (0-4); Lymphocytes # 2.6 K/mcL (0.6-4.6); Mean Corpuscular HGB Conc 34.1 g/dL (31.6-35.5); Mean Corpuscular Hemoglobin 30.6 pg (28.0-33.3); Mean Corpuscular Volume 89.7 fL (83.0-100.0); Mean Platelet Volume 10.7 fL (9.4-12.4); Monocytes # 0.5 K/mcL (0.0-1.3); Monocytes % 8.6 %; Neutrophils # 2.9 K/mcL (1.6-8.9); Platelet Count 193 K/mcL (140-400); Red Blood Count 5.07 M/mcL (4.19-5.50); Red Cell Distribution Width 13.8 % (11.5-14.5); Segmented Neutrophils % 46.4 %
[2017-07-01 04:43] LABS: INR 2.2; Prothrombin Time 23.7 Seconds (9.4-12.1)
[2017-07-01 04:45] LABS: BUN/Creatinine Ratio 18 (6-26); Blood Urea Nitrogen 13 mg/dL (8-26); Calcium 9.2 mg/dL (8.6-10.8); Carbon Dioxide 23 mEq/L (19-29); Chloride 107 mEq/L (98-109); Glucose 102 mg/dL (70-99); Osmolality,Calculated 286 (280-300); Potassium 4.1 mEq/L (3.5-4.5); Sodium 138 mEq/L (136-145); eGFR For African Americans > 60 (> 60); eGFR For Non-African Americans > 60 (> 60)
[2017-07-01] MEDS: Aspirin Enteric Coated 81 MG Tablet PO SCH (09:55)
[2017-07-01] MEDS: Ranolazine 500 MG TAB.ER.12H PO SCH (09:55)
[2017-07-01] MEDS: Magnesium Oxide 400 MG TABLET PO SCH (09:56)
[2017-07-01] MEDS: OXcarbazepine 150 MG TABLET PO SCH ×2 (09:56→17:02)
[2017-07-01] MEDS: Divalproex (24 HR) 250 MG TABLET PO SCH ×2 (09:56→17:02)
[2017-07-01 15:17] VITALS: BP 127/92
[2017-07-01] MEDS: *HR* Warfarin 4 MG TABLET PO SCH (17:02)
--- NOTE | 2017-07-01 17:02 | Discharge Summary ---
Date of Encounter: 07/01/17 Time of Encounter: 15:30 - Discharge Diagnosis (1) Chest pain Priority: Primary Status: Acute Comments: Pt denies chest pain today and states that he feels better than he has in a long time. He is able to ambulate without chest pain or CÁRDENAS. Pt will be discharged after 3rd dose of Sotalol. Qualifiers: Chest pain type: other chest pain Qualified Code(s): R07.89 - Other chest pain; R07.8 - Other chest pain (2) Paroxysmal a-fib Priority: Secondary Status: Acute Comments: Pt has pacer. Interrogated by cardiology. Pt is NSR. Continue Coumadin. INR is therapeutic at 2.2 today. (3) Tachy-freddy syndrome Priority: Secondary Status: Acute Comments: Pt has pacemaker. Stable. Follows with cardiology. (4) CAD (coronary artery disease) Priority: Secondary Status: Acute Comments: Contineu ASA,Statin, Renexa and Sotalol. Qualifiers: Coronary Disease-Associated Artery/Lesion type: [place] artery [place] vs. transplanted heart: [place] heart Associated angina: with stable angina Qualified Code(s): I25.118 - Atherosclerotic heart disease of [place] coronary artery with other forms of angina pectoris (5) DVT prophylaxis Priority: Secondary Status: Acute Comments: Pt is on Coumadin. - Discharge Medications Prescriptions: Sotalol [Betapace] 80 mg PO Q12HR #60 tab Home Medications: Gemfibrozil [Lopid] 600 mg PO BIDWM 07/31/15 [History] OXcarbazepine [Trileptal] 150 mg PO QPM 07/31/15 [History] Sertraline [Zoloft] 50 mg PO HS 07/31/15 [History] HYDROcodone/Acet 10/325 mg [[place] 10-325 mg] 1 tab PO BID PRN 01/24/17 [History] Acetaminophen/Butalbital/Caffe [Fioricet] 1 each PO Q4-6H PRN 06/28/17 [History] Aspirin Enteric Coated [Aspirin EC] 81 mg PO DAILY 06/28/17 [History] Atorvastatin [Lipitor] 40 mg PO HS 06/28/17 [History] Divalproex (24 HR) [Depakote ER (24 HR)] 250 mg PO TID 06/28/17 [History] Magnesium Oxide [Mag-Ox] 400 mg PO BID 06/28/17 [History] Midodrine [ProAmatine] 5 mg PO BID 06/28/17 [History] Nitroglycerin [Nitrostat] 0.4 mg SL Q5M PRN 06/28/17 [History] OXcarbazepine [Oxcarbazepine] 300 mg PO QAM 06/28/17 [History] Promethazine [Phenergan] 25 mg PO BID PRN 06/28/17 [History] Ranolazine [Ranexa] 500 mg PO BID 06/28/17 [History] Warfarin [Coumadin] 8 mg PO DAILY 06/28/17 [History] Sotalol [Betapace] 80 mg PO Q12HR #60 tab 07/01/17 [Rx] Warfarin [Coumadin] 8 mg PO 1800 tab 07/01/17 [Rx] Allergies/Adverse Reactions: 3 Allergy/AdvReac Type Severity Reaction Status Date / Time gabapentin Allergy Rash Verified 01/24/17 08:29 adhesive tape AdvReac Rash Verified 01/24/17 08:29 ibuprofen [From Motrin] AdvReac Swelling Verified 01/24/17 08:29 of Lip/Tongue/Throat morphine AdvReac See Verified 01/24/17 08:29 Comments Procedures/tests Complete & Pending: Procedures Performed prior 72 hours Category Date Time Status CT angio chest [CT] Stat Cat Scan 06/29/17 14:05 Completed EKG [ECG 12 lead ECG] [ECG] Stat Y 07/01/17 08:19 Ordered EV echocardiogram Routine Y 06/28/17 22:53 Completed Date of admission: 06/28/17 21:49 Primary care physician: Juan Saucedo MD Consults: 06/28/17 22:54 Consult to Cardiology [CONS] Routine Comment: Consulting Provider: Cardiology Maritza Reason for Consult: Pt has exertional chest pain. Had LHC in January shows 60% stenosis. Advised to come to ER today by his processing engineer. Call Completed: No Discharging clinician: Lana Mcintosh Anticipated date of discharge: 07/01/17 - Patient Status Disposition: Home, Self-Care Functional capacity at discharge: independent ambulation Overall status at discharge: patient is back to baseline - Discharge Instructions Follow Up With: Juan Saucedo MD [Primary Care Provider] - 07/07/17 1:30 pm () Forms: ED Satisfaction Letter Additional Instructions: Please follow up with your PCP in the next 7-10 days and cardiology as scheduled. Take your new medication as directed and continue your other medications. Stop taking Metoprolol. Return to the ER as needed for any other problems or concerns or if your symptoms return. - Diet and Activity Activity: increase activity as tolerated Diet: advance to your usual diet Hospital course: Mr. Padilla is a 51 year old male with PMH of P a-fib, Tachy freddy syndrome, pacer , CAD, who presents to the ED with c/o chest pain and tightness. Pt has chronic chest pain, especially exertiona ngina. LHC in January showed 60% LAD stenosis. He is a pt of Dr. Andrews. Pt said that since Tuesday he had 2 episodes of chest pain that is pressure-like, 10/10 in L chest with radiation to L arm with SOB, nausea and diaphoresis. Pt was seen by cardiology who ordered a CTA due to concern for PE, it was negative. They also interrogated his pacer which appeared to be functioning appropriately with atrial pace of 60% and ventricular pace of 1%. Pt had an echo on 06/29 that revealed an LVEF of 60% with mild LVDD. Metoprolol was discontinued and replaced with Sotalol 80mg BID. HE will continue his statin, ASA, and Ranexa. Pt was held for 3 doses of Sotalol to monitor for reaction and possible complications. He tolerated the change well and states that he feels better. He is now able to get up and walk around the room without difficulty and without SOB/CÁRDENAS. He denies chest pain. Pt's labs are WNL and Troponins were negative x 3, BNP is negative. Pt's vitals are WNL. Pt is stable and ready for discharge to home. - Time Spent with Patient Total time spent providing and/or coordinating discharge services: Less than 30 minutes - Constitutional Vitals: Temp Pulse Resp BP Pulse Ox 97.9 F 75 17 127/92 94 07/01/17 15:16 07/01/17 15:16 07/01/17 15:16 07/01/17 15:16 07/01/17 15:16 General appearance: Present: cooperative, A&O X 3, pleasant, no acute distress, answers questions appropriately - Head Head exam: Present: normal inspection - Eye Eye exam: Present: normal appearance, conjuntiva pink - ENT ENT exam: Present: mucous membranes moist, normal exam, normal oropharynx - Neck Neck exam general surgery: Present: normal inspection. Absent: lymphadenopathy , tenderness - Respiratory Respiratory exam: Present: CTAB. Absent: chest wall tenderness, decreased breath sounds, rales, respiratory distress, rhonchi, stridor, wheezes - Cardiovascular Cardiovascular exam: Present: RRR, +S1, +S2. Absent: clicks, diastolic murmur, gallop, systolic murmur - GI/Abdominal GI/Abdominal exam: Present: normal bowel sounds, soft. Absent: distended, hepatomegaly, tenderness - Extremities Exam Extremities exam: Present: normal capillary refill, normal inspection, warm, radial pulses palpable and symmetrical. Absent: joint swelling, pedal edema, tenderness - Neurological Exam Neurological exam: Present: alert, oriented X3. Absent: facial droop, speech deficit
--- NOTE | 2017-07-01 17:55 | Cardiology Progress Note ---
<Nam Ross - Last Filed: 07/01/17 18:17> Date of Encounter: 07/01/17 Time of Encounter: 11:15 Assessment and Plan (1) Atypical chest pain Status: Acute Chest CTA reveals no evidence of PE or acute pulmonary abnormality. Pacemaker was assessed and reported to be normal with 7.9 years left, 4 atrial high rates since May, atrial flutter/A-Fib, atrial pace of 60% and ventricular pace of 1% . Continue Nitroglycerine as needed. Continue Ranexa. Continue sotalol. (2) Sick sinus syndrome Status: Acute Pacemaker was assessed and appeared to be functioning normally. (3) Diastolic CHF Status: Acute Echocardiogram report from 06/29/17 reveals a LVEF of 60% with mild diastolic dysfunction of the LV. Continue sotalol 80 mg BID. Continue statin and aspirin. Qualifiers: Qualified Code(s): I50.30 - Unspecified diastolic (congestive) heart failure (4) Paroxysmal a-fib Status: Acute Continue sotalol 80 mg PO BID. Pacemaker was assessed and appears to be functioning normally. Patient is on coumadin and current INR is 2.2. (5) CAD (coronary artery disease) Status: Acute Trivial stenosis in mid LAD < 60% with excellent flow reserve of .98 before and after pharmacologic challenge with adenosine. No cardiac stress test is recommended. Continue sotalol. Continue aspirin and statin. Qualifiers: Coronary Disease-Associated Artery/Lesion type: [place] artery [place] vs. transplanted heart: [place] heart Associated angina: with stable angina Qualified Code(s): I25.118 - Atherosclerotic heart disease of [place] coronary artery with other forms of angina pectoris (6) History of hypotension Status: Chronic Patient takes midodrine at home along with a beta eleni. I advised patient that taking midodrine and a BB was counterproductive but he was insistent on staying on the medication his primary informatica developer prescribed him. I advised him to follow-up with his informatica developer in regards to this matter. (7) Hyperlipidemia Status: Acute Continue Statin. Qualifiers: Qualified Code(s): E78.5 - Hyperlipidemia, unspecified Discussion w patient/family: The assessment and plan as outlined above was discussed with the patient and/or family members who expressed understanding and agreement. All questions were answered. Thank you for involving us in the care of your patient. Please call with any questions. Subjective Principal diagnosis: Atypical chest pain r/o PE, Paroxysmal A-Fib Interval history: Spoke to patient today and he denies any chest pain. He still has some minor shortness of breath when he gets up to walk to the bathroom, but he says that has improved since yesterday. He denies any shortness of breath at rest. He denies nausea, vomiting, palpitations, or syncope. Objective Vital Signs, Last 4 Hours Temp Pulse Resp BP Pulse Ox 07/01/17 15:16 97.9 F 75 17 127/92 94 General: Conversant, No Apparent Distress Neck: No JVD, Normal carotid pulses Cardiac: Reg Rate and Rhythm, Normal S1 and S2, No Murmur Lungs: Normal Breath Sounds, No Wheeze, Rales, Rhonchi Neuro: Alert and responsive Abdomen: Soft, Non-Tender Musculoskeletal: No Chest Wall Tenderness Extremities: No Clubbing, No Cyanosis, No Edema, Normal Pulses Results 07/01/17 04:03 07/01/17 04:03 Lab Results 07/01/17 07/01/17 07/01/17 04:03 04:03 04:03 WBC 6.3 Hgb 15.5 Hct 45.5 Plt Count 193 INR 2.2 Sodium 138 Potassium 4.1 Chloride 107 Carbon Dioxide 23 BUN 13 Creatinine 0.73 Glucose 102 H Calcium 9.2 - EKG Interpretation EKG results cardiology: personally reviewed (07/01/2017: QTc has increased to 407 ms from 389. No [address] elevations. Atrial pacemaker. Sinus Rhythm.) Consult Discharge Plan - Plan Instructions: Sotalol (By mouth), Atrial Fibrillation (DC), Chest Pain (DC) Additional Instructions: Please follow up with your PCP in the next 7-10 days and cardiology as scheduled. Take your new medication as directed and continue your other medications. Stop taking Metoprolol. Return to the ER as needed for any other problems or concerns or if your symptoms return. Referrals: Juan Saucedo MD [Primary Care Provider] - 07/07/17 1:30 pm () Prescriptions: Sotalol [Betapace] 80 mg PO Q12HR #60 tab <Vipul Hernandez - Last Filed: 07/02/17 16:27> Date of Encounter: 07/02/17 Assessment and Plan (1) Chest pain Status: Acute Qualifiers: Chest pain type: other chest pain Qualified Code(s): R07.89 - Other chest pain; R07.8 - Other chest pain Discussion w patient/family: The assessment and plan as outlined above was discussed with the patient and/or family members who expressed understanding and agreement. All questions were answered. Thank you for involving us in the care of your patient. Please call with any questions. Objective Vital Signs, Last 4 Hours Temp Pulse Resp BP Pulse Ox 07/01/17 15:16 97.9 F 75 17 127/92 94 Results 07/01/17 04:03 07/01/17 04:03 Lab Results 07/01/17 07/01/17 07/01/17 04:03 04:03 04:03 WBC 6.3 Hgb 15.5 Hct 45.5 Plt Count 193 INR 2.2 Sodium 138 Potassium 4.1 Chloride 107 Carbon Dioxide 23 BUN 13 Creatinine 0.73 Glucose 102 H Calcium 9.2 - Attending Attestation PT seen and examined independently, chart reviewed,essenitally agree with above , my evaluation as follows: CC. Chest pain Asked to evaluate pt for chest pain and palpitations. PT reports palpitations and associated chest pain has resolved with switch from metoprolol to sotalol. He has been ambulatory [place] with resolution of previous palpitations, chest pain and shortness of breath with exertion. IMP/Plan 1. Chest pain, has improved with better control of heartrate response to a fib 2. Syncope - resolved on midodrine, discussed interaction with sotoalol, pt is very resistant to discontinue, convinced he will fall more frequently if discontinue, will leave on board for now, pt will disuss with Dr. Martínez at his schedule office visit. PT at low cardovascualr risk for hospital discharge.
--- NOTE | 2017-07-03 10:19 | Electrocardiograph Report ---
[address] [address] Test Date: 2017-07-01 Pat Name: Khadar Padilla Department: 113 Room: 3B48 Gender: M Flap Maker: : [id number] Requested By: Nam Ross Order Number: [id number] Reading MD: Brett Riggs MD Measurements Intervals [place] Rate: 67 P: 84 NE: 234 QRS: 11 QRSD: 108 T: 22 QT: 392 QTc: 407 Interpretive Statements [employer]LECT[employer] PACEM[employer]ER Electronically Signed On 07-03-2017 10:17:56 EDT by Brett Riggs MD
== END 2017-07-01 18:48 | disposition home or self-care (01) ==
LOC: 3BNU 18:55 → EMEROO 18:55 → 3BNU 22:04
PROVIDERS: ADMIT Nurse Practitioner Family; ATTEND Nurse Practitioner Family

== ENCOUNTER 2020-01-20 18:19 | Inpatient (IN) ==
[2020-01-20] MEDS ORDERED: Nitroglycerin 0.4 MG TAB.SUBL SL PRN (18:58)
[2020-01-20] MEDS ORDERED: Aspirin 325 MG TABLET PO ONE (18:59)
[2020-01-20 19:10] LABS: Basophils % 0.5 %; Eosinophils # 0.1 K/mcL (0.0-0.6); Eosinophils % 2.2 %; Hematocrit 47.3 % (37.5-50.1); Hemoglobin 15.9 g/dL (12.9-16.9); Immature Granulocytes % 0.5 % (0-4); Lymphocytes # 3.1 K/mcL (0.6-4.6); Lymphocytes % 51.2 %; Mean Corpuscular HGB Conc 33.6 g/dL (31.6-35.5); Mean Corpuscular Hemoglobin 31.1 pg (28.0-33.3); Mean Corpuscular Volume 92.6 fL (83.0-100.0); Monocytes # 0.6 K/mcL (0.0-1.3); Monocytes % 9.2 %; Neutrophils # 2.2 K/mcL (1.6-8.9); Platelet Count 207 K/mcL (140-400); Red Blood Count 5.11 M/mcL (4.19-5.50); Red Cell Distribution Width 13.6 % (11.5-14.5); Segmented Neutrophils % 36.4 %
[2020-01-20 19:14] LABS: INR 1.1; Prothrombin Time 12.4 Seconds (9.4-12.1)
[2020-01-20 19:17] LABS: Activated Partial Thrombo Time 46.9 Seconds (26.0-36.0)
[2020-01-20 19:31] LABS: BUN/Creatinine Ratio 21 (6-26); Blood Urea Nitrogen 16 mg/dL (6-20); Calcium 9.4 mg/dL (8.6-10.3); Carbon Dioxide 31 mEq/L (23-29); Chloride 102 mEq/L (98-107); Glucose 88 mg/dL (70-105); Osmolality,Calculated 285 (280-300); Potassium 4.4 mEq/L (3.5-5.1); Sodium 137 mEq/L (136-145); eGFR For African Americans > 60 (> 60); eGFR For Non-African Americans > 60 (> 60)
[2020-01-20 19:33] LABS: Troponin I < 0.03 ng/mL (< 0.04)
[2020-01-20] MEDS ORDERED: *HR* HYDROcodone/Acet 7.5/325 mg TABLET PO ONE (20:34)
[2020-01-20] MEDS ORDERED: Naloxone 0.4 MG/ML INJ IVP PRN (21:33)
[2020-01-20] MEDS ORDERED: OXcarbazepine 150 MG TABLET PO SCH (22:15)
[2020-01-20] MEDS: Apixaban 5 MG TABLET PO SCH (22:36)
[2020-01-21 07:40] LABS: Hematocrit 45.5 % (37.5-50.1); Hemoglobin 15.3 g/dL (12.9-16.9); Mean Corpuscular HGB Conc 33.6 g/dL (31.6-35.5); Mean Corpuscular Hemoglobin 30.7 pg (28.0-33.3); Mean Corpuscular Volume 91.4 fL (83.0-100.0); Mean Platelet Volume 10.6 fL (9.4-12.4); Platelet Count 176 K/mcL (140-400); Red Blood Count 4.98 M/mcL (4.19-5.50); Red Cell Distribution Width 13.7 % (11.5-14.5); White Blood Count 5.7 K/mcL (4.3-11.1)
[2020-01-21 08:00] LABS: BUN/Creatinine Ratio 24 (6-26); Blood Urea Nitrogen 17 mg/dL (6-20); Carbon Dioxide 26 mEq/L (23-29); Chloride 106 mEq/L (98-107); Potassium 3.8 mEq/L (3.5-5.1); Sodium 137 mEq/L (136-145); eGFR For African Americans > 60 (> 60)
[2020-01-21 08:01] LABS: Calcium 8.9 mg/dL (8.6-10.3); Glucose 82 mg/dL (70-105); Osmolality,Calculated 285 (280-300); Troponin I < 0.03 ng/mL (< 0.04); eGFR For Non-African Americans > 60 (> 60)
[2020-01-21] MEDS ORDERED: levETIRAcetam 250 MG TABLET PO SCH (09:00)
[2020-01-21] MEDS ORDERED: OXcarbazepine 150 MG TABLET PO SCH ×2 (09:00→21:00)
[2020-01-21] MEDS ORDERED: Regadenoson 0.4 MG/5 ML SYRINGE IVP ONE (09:06)
[2020-01-21] MEDS: Divalproex (24 HR) 500 MG TABLET PO SCH ×2 (14:30→21:32)
[2020-01-21] MEDS: DilTIAZem CD (24hr) 120 MG CAP.ER.24H PO SCH (14:30)
[2020-01-21] MEDS: Apixaban 5 MG TABLET PO SCH ×2 (14:30→21:34)
[2020-01-21] MEDS: Isosorbide MONOnitrate (24 HR) 30 MG TAB.ER.24H PO SCH (16:11)
[2020-01-21] MEDS: Ranolazine 500 MG TAB.ER.12H PO SCH (21:32)
[2020-01-22] MEDS ORDERED: OXcarbazepine 150 MG TABLET PO SCH (09:00)
[2020-01-22] MEDS: Divalproex (24 HR) 500 MG TABLET PO SCH (09:50)
[2020-01-22] MEDS: Ranolazine 500 MG TAB.ER.12H PO SCH (09:51)
[2020-01-22] MEDS: Isosorbide MONOnitrate (24 HR) 30 MG TAB.ER.24H PO SCH (09:51)
[2020-01-22] MEDS: DilTIAZem CD (24hr) 120 MG CAP.ER.24H PO SCH (09:52)
[2020-01-22] MEDS: Apixaban 5 MG TABLET PO SCH (10:47)
[2020-01-22 11:06] VITALS: BP 105/67
== END 2020-01-22 13:30 | disposition home or self-care (01) ==
LOC: 3BNU 18:19 → EMEROOARM 18:19 → SUATTDRO 21:29 → 3BNU 22:21
PROVIDERS: ADMIT Internal Medicine; ATTEND Internal Medicine